=== PATIENT | male | born 1970 | race African-American/Black ===

== ENCOUNTER 2016-12-01 03:53 | Emergency (ER) | payer OTHER ==
[~2016-12-01] VITALS: Ht 177.8 cm; Wt 95.0 kg
[2016-12-01 04:52] LABS: HEMATOCRIT 35.8 % (38.0-50.0); MCH 28.4 PG (29.0-34.0); MCHC 33.8 G/DL (30.0-36.0); PLATELET COUNT 227 K/uL (156-360); RBC DIS.WIDTH-SD 36.6 % (39-53); RED BLOOD COUNT 4.26 M/uL (4.00-5.50); WHITE BLOOD COUNT 14.6 K/uL (4.1-10.2)
[2016-12-01 05:06] LABS: CHLORIDE 108 mEq/L (99-109); POTASSIUM 4.1 mEq/L (3.7-5.4); SODIUM 142 mEq/L (136-147)
[2016-12-01 05:07] LABS: GLUCOSE 145 mg/dL (70-99)
[2016-12-01 05:09] LABS: ANION GAP 11 MEQ/L (2-14)
[2016-12-01 05:11] LABS: GFR ESTIMATE (CALCULATED) > 59 mL/min/
[2016-12-01 05:12] LABS: UREA NITROGEN (BUN) 11 mg/dL (9-23)
[2016-12-01 05:15] LABS: TROP-I INTERPRETATION NEGATIVE; TROPONIN-I < 0.01 ng/mL (0.0-0.30)
[2016-12-01 05:45] VITALS: BP 136/78
[2016-12-01] MEDS ORDERED: SERTRALINE HCL100 MG PO (05:50)
[2016-12-01] MEDS ORDERED: SYNTHROID50 MCG PO (05:50)
[2016-12-01 05:55] LABS: POINT-OF-CARE METER ID UU13113702
[2016-12-01] MEDS ORDERED: ATORVASTATIN CA40 MG PO (05:56)
[2016-12-01] MEDS ORDERED: ENALAPRIL MALEA20 MG PO (05:56)
== END 2016-12-01 05:46 ==
LOC: EME → EDBD 03:53 → EME 05:46
PROVIDERS: Emergency Medicine
DX: E11.649 Type 2 diabetes mellitus with hypoglycemia without coma (principal); Z79.4 Long term (current) use of insulin; R07.9 Chest pain, unspecified
CPT/HCPCS: 71020; 80048; 82948; 84484; 85027; 93005; 99281; 99284